=== PATIENT | male | born 2000 | race Caucasian/White ===

== ENCOUNTER 2021-10-21 11:21 | Emergency (ER) | payer OTHER ==
[2021-10-21 11:31] VITALS: BP 98/52
--- NOTE | 2021-10-21 12:07 | ED Physician Documentation ---
PD HPI WOUND RECHECK - Stated complaint Stated Complaint: RIGHT ARM PAIN - Chief complaint Chief Complaint: Wound - Histroy obtained from History obtained from: Patient - Additional information Additional information: Previously healthy 20-year-old gentleman who is active duty in the [employer] noted a rash on the posterior right shoulder this morning. It is not painful. He does not recall any injury to the area. No recent travel. No contacts with sick people. No systemic symptoms such as myalgias, fever etc. Review of Systems Constitutional: denies: Fever, Chills, Myalgias Eyes: reports: Reviewed and negative Ears: reports: Reviewed and negative Nose: reports: Reviewed and negative Throat: reports: Reviewed and negative PD PAST MEDICAL HISTORY - Present Medications Home Medications: Ambulatory Orders Medication Instructions Recorded Confirmed Doxycycline Hyclate 100 mg PO BID #14 10/21/21 Mupirocin 2% Oint [Bactroban 2% 1 applic TOP BID #50 gm 10/21/21 Oint] - Allergies Allergies/Adverse Reactions: Allergies Allergy/AdvReac Type Severity Reaction Status Date / Time No Known Drug Allergies Allergy Verified 10/21/21 11:31 PD ED PE NORMAL - Vitals Vital signs reviewed: Yes - General General: Alert and oriented X 3, No acute distress - HEENT HEENT: PERRL, EOMI - Neck Neck: Supple, no meningeal sign, No bony TTP - Cardiac Cardiac: RRR, No murmur - Extremities Extremities: Other (There is a very odd rash confined to the deltoid area of the left shoulder. Posteriorly there are some areas that look like linear cuts, more anteriorly there are some deep nonpurulent ulcers. No cellulitis.) - Neuro Neuro: Alert and oriented X 3, Normal speech Results - Vitals Vitals: Vital Signs - 24 hr 10/21/21 11:29 Temperature 36.4 C L Heart Rate 56 L Respiratory 16 Rate Blood Pressure 98/52 L O2 Saturation 100 Oxygen O2 Source Room air PD MEDICAL DECISION MAKING - ED course ED course: 20-year-old gentleman with a rash most consistent with a staph infection. There is really nothing to culture. He had a specific concern about monkeypox and I think he is low risk given his lack of systemic symptoms or risk factors, that [facility] Myles and there is no limitation on testing. Departure - Departure Disposition: 01 Home, Self Care Clinical Impression: Skin infection Condition: Good Record reviewed to determine appropriate education?: Yes Instructions: ED Staph Infec Abx Tx Only Prescriptions: Mupirocin 2% Oint [Bactroban 2% Oint] 1 applic TOP BID #50 gm Doxycycline Hyclate 100 mg PO BID #14 Comments: You are seen today for rash on your right deltoid/posterior shoulder. It looks most like a staph infection, and for that I am giving you prescription for antibiotics. That said out of an abundance of caution and request we did swab you for monkey pox, given your lack of fever, muscle aches, or other infectious symptoms I suspect that will be negative but we will call you if positive. For wound care, simple soap and water and then I am also prescribing an antibiotic ointment that she can put on it and then just keep it covered with a Band-Aid. Return if worsening. [place].
== END 2021-10-21 12:27 | disposition home or self-care (01) ==
LOC: ED 11:21
DX: B99.9 Unspecified infectious disease (principal)
CPT/HCPCS: 81599; 99282

== ENCOUNTER 2021-12-28 17:17 | Emergency (ER) | payer OTHER ==
[2021-12-28 17:24] VITALS: BP 105/56
--- NOTE | 2021-12-28 19:07 | ED Physician Documentation ---
History of Present Illness - Stated complaint Stated Complaint: MALE - Chief complaint Chief Complaint: Wound - Additonal information Additional information: 21-year-old male presents emergency department for evaluation of pain under the foreskin of his penis that began last night. He describes a burning tingling sensation. No history of similar. He is sexually active and monogamous with his . No condom use. He has no dysuria. No history of STI Review of Systems Constitutional: reports: Reviewed and negative Ears: reports: Reviewed and negative Cardiac: reports: Reviewed and negative : reports: Other (Penile pain) PD PAST MEDICAL HISTORY - Present Medications Home Medications: Ambulatory Orders Medication Instructions Recorded Confirmed Valacyclovir HCl [Valtrex] 1,000 mg PO TID 7 Days #21 tablet 12/28/21 - Allergies Allergies/Adverse Reactions: Allergies Allergy/AdvReac Type Severity Reaction Status Date / Time No Known Drug Allergies Allergy Verified 12/28/21 17:24 PD ED PE EXPANDED - General General: Alert, No acute distress - Male Male : Normal lie/cremastaric, Cultures sent. No: Circumcised (Uncircumcised male. Number of small red vesicular lesions seen on the glans of the foreskin and under the penis. No penile discharge. No penile tenderness) Results - Vitals Vitals: Vital Signs - 24 hr 12/28/21 17:21 Temperature 36.7 C Heart Rate 66 Respiratory 16 Rate Blood Pressure 105/56 L O2 Saturation 100 Oxygen O2 Source Room air PD MEDICAL DECISION MAKING - ED course Complexity details: considered differential, d/w patient, d/w family ED course: 21-year-old male presents emergency department for evaluation of penile pain under his foreskin that he noted last night. No history of STI. On exam he has a number of red vesicular lesions under the Foreskin and on the glans of his penis. These were cultured for HSV 1 and 2 however we will start him on valacyclovir. GC is pending via urine. I discussed with the patient and his the long-term care for HSV. He will follow-up with [facility]. Discussed that should he have recurrent outbreaks they could consider suppressive therapy moving forward. He will ask for his med ical results to be forwarded to [facility]. Departure - Departure Disposition: 01 Home, Self Care Clinical Impression: Herpes genitalia Qualifiers: Herpes simplex infection site: penis Qualified Code(s): A60.01 - Herpesviral infection of penis Condition: Stable Record reviewed to determine appropriate education?: Yes Instructions: Herpes Simplex Virus Culture and Typing, Herpes Dx Prescriptions: Valacyclovir HCl [Valtrex] 1,000 mg PO TID 7 Days #21 tablet Comments: Ankush frances came to the emergency department because you have been having some tingling burning pain on the glans of your penis. As we discussed at the bedside you do have some small red sores and blisters that are very suspicious for herpes or genital herpes. We did send a culture of the swabs and will have the results in a few days. We are also sending your urine for chlamydia and gonorrhea testing. In the short-term I am starting you on valacyclovir. You will take this 3 times a day for the next week. This has been sent to [facility] in [place]. In general the first herpes outbreak is the most painful. I recommend that you take ibuprofen or Tylenol. Avoid any sexual contact until you have your culture results and the sores have healed. I do recommend that you follow-up with [facility]. Some people will get recurrent or too frequent outbreaks and in these cases some people are good candidates for suppressive therapy. This is to be discussed with your primary doctor.
[2021-12-28 19:33] LABS: BILIRUBIN,URINE NEGATIVE (NEGATIVE); GLUCOSE, URINE (UA) NEGATIVE (NEGATIVE); KETONES,URINE (UA) NEGATIVE (NEGATIVE); LEUKOCYTE ESTERASE, URINE NEGATIVE (NEGATIVE); NITRITE,URINE NEGATIVE (NEGATIVE); OCCULT BLOOD,URINE NEGATIVE (NEGATIVE); PH,URINE 6.5 PH (5.0-7.5); PROTEIN,URINE NEGATIVE (NEGATIVE); UROBILINOGEN,URINE 0.2 (NORMAL) E.U./dL (NORMAL)
[2021-12-28 19:35] LABS: CLARITY,URINE HAZY (CLEAR)
[2021-12-28 19:56] LABS: AMORPHOUS SEDIMENT,UR Rare /LPF; BACTERIA,URINE None Seen /HPF (None Seen); RBC,URINE None Seen /HPF (0-5); SQUAMOUS EPITHELIAL CELL,UR NONE SEEN (<= Few); WBC,URINE 0-3 /HPF (0-3)
[2021-12-28 23:05] LABS: CHLAMYDIA TRACHOMATIS DNA NEGATIVE (NEGATIVE); NEISSERIA GONORRHOEAE DNA NEGATIVE (NEGATIVE)
== END 2021-12-28 19:25 | disposition home or self-care (01) ==
LOC: ED 17:17
DX: A60.01 Herpesviral infection of penis (principal)
CPT/HCPCS: 81001; 81003; 87086; 87491; 87529; 87591; 87661; 99282; 99283

== ENCOUNTER 2023-07-31 11:24 | Outpatient (CLI) | payer OTHER ==
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
[2023-07-31 12:44] VITALS: BP 124/74; O2SAT 97
== END 2023-07-31 11:25 | disposition home or self-care (01) ==
LOC: SC 11:24
PROVIDERS: ATTEND Internal Medicine Pulmonary Disease
DX: G47.8 Other sleep disorders (principal); R06.83 Snoring; G47.10 Hypersomnia, unspecified; R06.81 Apnea, not elsewhere classified; R53.83 Other fatigue; R51.9 Headache, unspecified; R41.89 Other symptoms and signs involving cognitive functions and awareness
CPT/HCPCS: 99442

== ENCOUNTER 2023-08-16 19:36 | Outpatient (CLI) | payer OTHER | END 2023-08-16 19:37 | disposition home or self-care (01) | LOC: SC 19:36 | PROVIDERS: ATTEND Internal Medicine Pulmonary Disease | DX: G47.33 Obstructive sleep apnea (adult) (pediatric) (principal) | CPT/HCPCS: 95810 ==